=== PATIENT | female | born 1995 | race Caucasian/White ===

== ENCOUNTER 2017-10-04 10:00 | Outpatient (RCR) | payer OTHER, SELFPAY ==
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
== END 2017-11-28 19:00 | disposition home or self-care (01) ==
LOC: PT 10:00
PROVIDERS: Family Provider Pediatrics; PCP Pediatrics
DX: R26.9 Unspecified abnormalities of gait and mobility (principal)
CPT/HCPCS: 97014; 97110; 97116; 97140; 97163; 97164; 97530; G0283

== ENCOUNTER 2017-12-03 10:40 | Observation (INO) | payer OTHER, SELFPAY ==
[2017-12-03 10:40] VITALS: BP 120/76; PULSE 140; RESP 12; TEMP 36.2; O2SAT 100; BMI 18.4
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
[2017-12-03] MEDS: Ondansetron 4 MG/2 ML Vial IV (11:20)
[2017-12-03] MEDS: 0.9% Normal Saline 1,000 ML 1000 ML IV ×2 (11:20→15:00)
[2017-12-03 12:08] LABS: Absolute Lymphocyte Count 1.32 X10^3/ul (0.83-4.51); Absolute Neutrophil Count 6.6 X10^3/uL (2.0-7.7); Basophil# 0.01 X10^3/uL; Basophil% 0.1 % (0-1); Eosinophil# 0.15 X10^3/uL; Eosinophils% 1.7 % (0-5); Hematocrit 43.9 % (37-47); Hemoglobin 15.6 g/dl (12.0-15.0); Lymphocyte # 1.32 X10^3/ul (4.0); Lymphocyte % 14.7 % (19-41); Mean Corpuscular Volume 84.4 fL (81-99); Mean Platelet Vol. 10.1 fl (6.2-12.0); Monocyte# 0.83 X10^3/uL; Monocyte% 9.3 % (0-10); Neutrophil # 6.64 X10^3/uL (2.7-7.7); Platelet Count 239 K/mm3 (150-450); RBC Distribution Width SD 39.8 fl (35.1-43.9)
[2017-12-03 12:09] LABS: Mean Corp Hgb Conc 35.5 g/gl (32-36); POSITIVE COUNT NO; POSITIVE DIFFERENTIAL NO; POSITIVE MORPHOLOGY NO
[2017-12-03 12:11] LABS: Bacteria 0 SEEN /hpf (None Seen); Mucous, Urine 0 SEEN /hpf (<or=2+); Red Blood Cells-Urine 0 SEEN /hpf (0-5)
[2017-12-03 12:12] LABS: Color, Urine Yellow (Yellow); Glucose, Dipstick Normal (Normal); Ketone-Dipstick 150 mg/dl (Negative); Leukocyte Esterase-Dipstick 25 /ul (Negative); Nitrite-Dipstick Negative (Negative); Occult Blood-Urine 150 /ul (Negative); Protein-Dipstick 30 mg/dl (Negative); Specific Gravity, Urine 1.015 (1.002-1.030); Urine Bilirubin Dipstick 3 mg/dL (Negative); Urine Clarity Clear (Clear); Urine Urobilinogen 1 mg/dl (Normal)
[2017-12-03 12:15] LABS: AST(SGOT) 16 U/L (15-37); Alanine Aminotransfer ALT/SGPT 34 U/L (13-56); Alkaline Phosphatase 84 U/L (45-117); Anion Gap 10 (5-15); BUN 18 mg/dL (7-18); BUN/Creat Ratio 18.4 RATIO (10-20); Bilirubin, Direct 0.48 mg/dL (0.00-0.30); Calcium,Total 8.8 mg/dL (8.5-10.1); Chloride 101 mmol/L (98-107); Creatinine, Serum 0.98 mg/dL (0.55-1.02); EST Glomerular Filtration Rate 75 mL/min (>60); Est Glom Filt Rate - Afr Amer 91 mL/min (>60); Estimated Creatinine Clearance 71.64 ml/min; Globulin 3.7 g/dL (2.2-4.2); Glucose 71 mg/dL (74-106); Lipase 1704 U/L (73-393); Potassium 3.7 mmol/L (3.5-5.1); Protein, Total 7.7 g/dL (6.4-8.2); Sodium Level 135 mmol/L (136-145)
[2017-12-03 12:18] LABS: Pregnancy, Serum, hCG Quali. NEGATIVE Negative (0-9 Nonpreg)
[2017-12-03 12:18] LABS: Squamous Epithelial Cells - UA 5-10 SEEN /hpf (5-10); White Blood Cells 0-5 SEEN /hpf (0-5)
[2017-12-03 12:20] VITALS: BP 107/74; PULSE 98; RESP 16; O2SAT 100
--- NOTE | 2017-12-03 15:13 | PCM.HP.STD ---
History of Present Illness Date of Admission: 12/03/17 Chief Complaint: Abdominal pain The patient is a 22 year old F who presented to the emergency room due to abdominal pain for 3 days, she described intermittent pain associated with nausea and diarrhea. [] She will also reports poor appetite and weight loss past [address] scan of the abdomen and pelvis done in the emergency room revealed fluid within the small bowel and colon suggesting enterocolitis. Her lipase was elevated at 1704 and her bilirubin at 4.50. Her mother has history of Gilbert's syndrome. Past Medical History Allergies No Known Allergies Allergy (Verified 12/03/17 10:44) Home Medications: Ambulatory Orders Medication Instructions Recorded Lisdexamfetamine Dimesylate 50 mg PO DAILY 12/03/17 [Vyvanse] Norgestimate-Ethinyl Estradiol 1 tab PO DAILY 12/03/17 [Previfem] Spironolactone [Aldactone] 50 mg PO DAILY 12/03/17 Surgical History: no surgical history Smoking Status: Never smoker Review of Systems Comment: All Systems were reviewed with pertinent positives mentioned in the HPI above. VTE Information - Inpt Only VTE Present on Admission: No VTE Pharm Prophylaxis ordered?: No - Physical Exam General: Alert, Oriented x3 HEENT: Atraumatic Oral: Moist Mucosa Neck: Supple Lungs: Clear to auscultation, No wheeze, No rales Cardiovascular: Regular rate, Normal S1, Normal S2 Extremities: No edema Musculoskeletal: No Tenderness to Palpation of Joints or Extremities Lymphatic: No Cervical, Supraclavicular, or Inguinal Adenopathy Neurological: Cranial nerves II-XII grossly intact Vital Signs Temp Pulse Resp BP Pulse Ox 97.2 F L 98 16 107/74 100 12/03/17 10:40 12/03/17 12:20 12/03/17 12:20 12/03/17 12:20 12/03/17 12:20 Assessment/Plan 1. Acute gastroenteritis; will place her on antibiotics and IV hydration. 2. Elevated lipase consistent with acute pancreatitis; clinically this does not fit pancreatitis picture, we will repeat lipase in a.m. 3. Dehydration; continue IV fluids as above. 4. Hyperbilirubinemia; transaminases are normal, her mother has history of Gilbert's syndrome, follow-up with her primary care physician be screened for Gilbert syndrome. 5. History of ADHD; she is on Vyvanse. 6. History of Acne Vulgaris; she is on Spironolactone 7. Early ambulation for DVT prophylaxis.
[2017-12-03 15:31] VITALS: BMI 19.1
[2017-12-03 15:43] VITALS: BP 92/48; PULSE 110; RESP 14; TEMP 36.9; O2SAT 98
[2017-12-03 20:53] VITALS: BP 103/61; PULSE 89; RESP 20; TEMP 36.7
[2017-12-03 22:00] VITALS: RESP 15
[2017-12-04 04:00] VITALS: PULSE 90; RESP 15
[2017-12-04 06:23] LABS: Absolute Lymphocyte Count 1.65 X10^3/ul (0.83-4.51); Absolute Neutrophil Count 4.9 X10^3/uL (2.0-7.7); Basophil# 0.02 X10^3/uL; Basophil% 0.3 % (0-1); Eosinophil# 0.25 X10^3/uL; Eosinophils% 3.3 % (0-5); Hematocrit 36.7 % (37-47); Hemoglobin 12.9 g/dl (12.0-15.0); Lymphocyte # 1.65 X10^3/ul (4.0); Lymphocyte % 21.9 % (19-41); Mean Corp Hgb Conc 35.1 g/gl (32-36); Mean Corpuscular Hgb 29.9 pg (27.0-32.0); Mean Corpuscular Volume 85.2 fL (81-99); Mean Platelet Vol. 9.9 fl (6.2-12.0); Monocyte# 0.68 X10^3/uL; Neutrophil # 4.92 X10^3/uL (2.7-7.7); Neutrophil % 65.5 % (47-70); Platelet Count 195 K/mm3 (150-450); RBC Distribution Width CV 13.1 % (11.6-14.6); RBC Distribution Width SD 40.6 fl (35.1-43.9); Red Blood Count 4.31 M/mm3 (4.2-5.4); White Blood Count 7.5 K/mm3 (4.4-11.0)
[2017-12-04 06:27] LABS: POSITIVE COUNT NO; POSITIVE DIFFERENTIAL NO; POSITIVE MORPHOLOGY NO
[2017-12-04 06:29] LABS: AST(SGOT) 11 U/L (15-37); Albumin, Serum 2.9 g/dL (3.2-5.0); Alkaline Phosphatase 63 U/L (45-117); BUN 9 mg/dL (7-18); BUN/Creat Ratio 13.5 RATIO (10-20); Calcium,Total 7.9 mg/dL (8.5-10.1); Creatinine, Serum 0.66 mg/dL (0.55-1.02); EST Glomerular Filtration Rate 118 mL/min (>60); Est Glom Filt Rate - Afr Amer 142 mL/min (>60); Estimated Creatinine Clearance 109.76 ml/min; Glucose 80 mg/dL (74-106); Protein, Total 5.9 g/dL (6.4-8.2)
[2017-12-04 06:30] LABS: Alanine Aminotransfer ALT/SGPT 24 U/L (13-56); Anion Gap 9 (5-15); Bilirubin, Direct 0.47 mg/dL (0.00-0.30); Chloride 109 mmol/L (98-107); Potassium 3.6 mmol/L (3.5-5.1); Sodium Level 141 mmol/L (136-145)
[2017-12-04] MEDS: 0.9% Normal Saline 1,000 ML 999 ML IV (07:59)
[2017-12-04 08:01] VITALS: BP 111/66; PULSE 99; RESP 16; TEMP 36.4; O2SAT 100
[2017-12-04] MEDS: Pantoprazole Sodium 20 MG Tablet PO (09:06)
[2017-12-04 09:08] LABS: Lipase 629 U/L (73-393); Magnesium 1.5 mg/dL (1.6-2.6)
--- NOTE | 2017-12-04 09:12 | PCM.DC ---
- Discharge Diagnoses Current Active Problems: Acute Enterocolitis, Gastroenteritis Acute Pancreatitis secondary to #1 Hyperbilirubinemia w/ family history of Gilbert's Syndrome, Possible elevated secondary to #1 and underlying history (improved) ADHD Acne Vulgaris You will use the following diet at home:: Regular Your food should be the consistency of: Regular Your liquids should be the consistency of: Regular/Thin Discharge Activity: - - May slowly return to normal activity. Advised avoidance of aggressive activity until follow-up with primary care physician. May resume sexual activity in: 1-2 weeks Weight Bearing Status: Weight bearing as tolerated Call your doctor if you observe: Fever of 101 or Higher, Inability to urinate, Inability to have a bowel movement, Shortness of breath, Dizziness, Fainting spells, Chest pain, Calf discomfort, Uncontrolled pain Instructions: Viral Gastroenteritis in Children, Discharge Instructions for Acute Pancreatitis, Understanding Pancreatitis, Dehydration Additional Instructions: Please have repeat hepatic profile with your primary care physician at follow-up to assure continued improve given recent acute presentation and also have evaluation for Gilbert's Syndrome given your notable family history. Allergies/Adverse Reactions: Allergies No Known Allergies Allergy (Verified 12/03/17 10:44) Medications to take at Discharge Lisdexamfetamine Dimesylate [Vyvanse] 50 mg PO DAILY 12/03/17 Norgestimate-Ethinyl Estradiol [Previfem] 1 tab PO DAILY 12/03/17 Spironolactone [Aldactone] 50 mg PO DAILY 12/03/17 Pantoprazole Sodium [Protonix] 20 mg PO BID #60 tab 12/04/17 The following prescriptions were given: Pantoprazole Sodium [Protonix] 20 mg PO BID #60 tab Primary Care Physician: Rene Schmidt MD [Primary Care Provider] - Please follow up with your Primary Care Physician in: Follow-up within 2-3 days to review admission. Proposed Discharge Date: 12/04/17
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
[2017-12-04 13:26] VITALS: BP 105/74; PULSE 99; RESP 16; TEMP 36.7; O2SAT 95
== END 2017-12-04 14:29 | disposition home or self-care (01) ==
LOC: ED 11:30 → MS3 14:45
PROVIDERS: Admitting Provider Internal Medicine; Emergency Provider Emergency Medicine; Family Provider Pediatrics; PCP Pediatrics; Visit Provider Family Medicine
DX: E86.0 Dehydration (principal); K52.9 Noninfective gastroenteritis and colitis, unspecified; K85.90 Acute pancreatitis without necrosis or infection, unspecified; L70.0 Acne vulgaris; F90.9 Attention-deficit hyperactivity disorder, unspecified type; E80.6 Other disorders of bilirubin metabolism; Z79.899 Other long term (current) drug therapy
CPT/HCPCS: 36415; 74177; 80048; 80076; 81001; 83690; 83735; 84703; 85025; 96361; 96374; 97802; 99218; 99285; J7030; Q9967; A4216; G0378; J2405

== ENCOUNTER 2018-04-30 08:30 | Outpatient (RCR) | payer OTHER, SELFPAY ==
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
--- NOTE | 2018-01-25 19:10 | HP.PTREVAL_ITS ---
STAN CABRAL, It has been my pleasure to treat NIDIA HUNT over the last 9 visits for LB fusion.. Please see the progress note below for an update on the physical therapy plan of care! Subjective: Feels like motion is getting better. 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 My back feels OK. Little twinges here and there in back but transient. Stiffness is better. Can cross legs now and tie shoes easier. Doing yoga exercises at home. Objective/Function: 30 degrees, flexion 90degrees. R SB:25, L SB 27 degrees with inclinometer. Walking well. Overall significantly better ROM and good function. Wants to try to continue stretching on her own and f/u in a couple months. Plan Plan: f/u 3 months to ensure progressing ROM and then D/C Goals Goal 1:: 20 degrees l/s ext, 50 degrees flexiona and 25 SB without pain. Goal Time Frame: 4-6 Weeks Goal Progress: Goal Met Goal 2:: I apporp HEP to continue ROM improvements. Goal Time Frame: 4-6 Weeks Goal Progress: Goal Met Goal 3:: Bend down to touch floor in standing easily Goal Time Frame: 4-6 Weeks Goal Progress: Progressing Goal 4:: 10 degree improvements in all lumbar ROM ext, flex, SB measurements to limit future problems. Goal Time Frame: 12-16 Weeks Goal Progress: NEW GOAL. Anticipated Interventions Patient/Client Instruction: Educate patient on: Condition, Plan of Care For the Purpose of:: To increase ROM Therapeutic Exercise to Include: Flexibilty training, Passive ROM, Active ROM For the Purpose of:: To increase ROM Manual Therapy Techniques to Include: Soft tissue mobilization For the Purpose of:: To improve nutrient delivery to tissue Thermo therapy (hot pack): Yes For the Purpose of:: To improve nutrient delivery to tissue Please do not hesitate to contact me at [phone] by phone or Fax: if you have questions or concerns regarding this new plan of care! Sincerely, Mathew Jose, DPT, OC
--- NOTE | 2018-04-30 09:17 | HP.PTDCSUM_ITS ---
HP - PT D/C Summary It has been my pleasure to treat NIDIA HUNT under orders from STAN CABRAL, for the diagnosis of LB fusion. for a total of 10 visit(s). Discharge Date: Please see the following information for a summary of their discharge status. - Subjective Subjective: Couple weeks ago stepped off uneven curb and felt pain L LB. Has been there intermittently since and is worse this morning adn with walking. Comfortable lying down. Prior to that was doing really well. Running was OK, pwer walking was OK. Had stopped most ex prior to that. Was sleepign well and activities were normal. L leg remains a little numb buit not noticeable and not worsening. - Pain L LBP Pain Intensity (Out of 10): 5 - Objective Objective/Function: LE AROM full and painfree, HS and gastroc tight. I ntermittent winces of pain mostly with standing today. sensation LE WNL to gross light touch. reflexes patella and aachilles 2/3. LB AROM ext max limited, flexion max limited, SB max limited. Pt has obviously not been working on ROM. Also weak in core with trasnitions and in hips to muscle testing at 4-. Core strength sit up 3. Tender to touch max in L LB paraspinals and into glut upper. Also PA painful lower lumbar and off to left. OVERALL SEEMS INFLAMMED L LB POSSIBLY FROM STEPPING OFF CURB ERRANTLY. RECOMMENDED X RAY FORM DOCTOR AND GENTLE ROM ONCE IT IS CLEAR. THEN F/U WITH DOCTOR IF NOT IMPROVING. - Goals Goal 1:: 20 degrees l/s ext, 50 degrees flexiona and 25 SB without pain. Goal Progress: Goal Met Goal 2:: I apporp HEP to continue ROM improvements. Goal Progress: Goal Met Goal 3:: Bend down to touch floor in standing easily Goal Progress: Not Progressing Goal 4:: 10 degree improvements in all lumbar ROM ext, flex, SB measurements to limit future problems. Goal Progress: Not Progressing - Plan Plan: D/C RECOMMENDING COMPLETE ORDERED X RAY AND F/U WITH DOCTOR FOR LBP, WOULD BE HAPPY TO SEE PATIENT AGAIN AT [facility] WITH A NEW SCRIPT IF FOUND APPROPRIATE BY PHYSICIAN. IF PT APPROPRIATE PRIOR, DOCTOR SHOULD WRITE ORDER TO PT IN [facility]. - D/C Information If there are questions or concerns regarding this patient's physical therapy, please feel free to call me at [phone]. Thank you for the referral of this patient. Sincerely, Mathew Jose, DPT, OC
== END 2018-04-30 19:00 | disposition home or self-care (01) ==
LOC: PT 08:30
PROVIDERS: Family Provider Pediatrics; PCP Pediatrics
DX: M54.5 Low back pain (principal); Z98.1 Arthrodesis status
CPT/HCPCS: 97110; 97140; 97164; 97530

== ENCOUNTER → 2018-04-30 09:19 | Outpatient (CLI) | payer OTHER, SELFPAY ==
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
== END ==
PROVIDERS: Family Provider Pediatrics; PCP Pediatrics
DX: M54.5 Low back pain (principal)
CPT/HCPCS: 72110

== ENCOUNTER → 2018-06-13 12:14 | Outpatient (CLI) | payer OTHER, SELFPAY ==
[2018-01-15 13:06] VITALS: BMI 19.1
[2018-06-13 12:56] LABS: Amylase 197 U/L (25-115); Lipase 1172 U/L (73-393)
== END ==
PROVIDERS: Family Provider Pediatrics; PCP Pediatrics
DX: R10.13 Epigastric pain (principal)
CPT/HCPCS: 82150; 83690

== ENCOUNTER 2018-06-13 16:08 | Observation (INO) | payer OTHER, SELFPAY ==
[2018-06-13 16:08] VITALS: BP 116/69; PULSE 121; RESP 14; TEMP 37; O2SAT 100; BMI 19.5
--- NOTE | 2018-06-13 16:41 | ED.DCSUM_ITS ---
- ER Visit Summary Date of Service: 06/13/18 Chief Complaint: abdominal pain History of Present Illness: The patient is a 22 F with history of pancreatitis patient presents for 2 days of intermittent sharp epigastric abdominal pain with constant sensation of bloating. Patient was sent in by her primary care provider after a noted elevated lipase of 1172. Primary care provider attempted to direct admit her but was advised to send her to the emergency department for initial evaluation. Patient has had associated fatigue and has had no appetite today. She denies any fever, nausea or vomiting. She has had loose stools but denies overt diarrhea. Patient has a history of pancreatitis after of abdominal trauma and subsequent surgery. She also has a history of Gilbert's syndrome. Patient did drink alcohol over the holidays, although denies any excessive use. She does not smoke. She has NO history of cholecystectomy. Physical Examination: Vital signs: afebrile, hemodynamically stable, no hypoxia on room air General: well nourished, well developed, in no distress Skin: warm, dry, no rash, no pallor HEENT: normocephalic and atraumatic; PERRL, EOMI, moist mucous membranes Cardiovascular: Tachycardic rate and rhythm without murmurs, no peripheral edema, 2+ pulses all distal extremities Respiratory: No increased work of breathing, lungs are clear to auscultation bilaterally, no rales, rhonchi or wheezing Abdominal: Abdomen is soft, tender in the epigastrium with normoactive bowel sounds, no guarding or rebound, no masses MSK: Moves all extremities, no deformities, normal strength Neuro: Awake and alert, oriented ?4. No facial droop, sensation and motor function intact and symmetric Test Results: Abnormal Lab Results 06/13/18 06/13/18 06/13/18 17:00 17:00 17:40 WBC 8.8 RBC 4.73 Hgb 14.4 Hct 41.6 MCV 87.9 MCH 30.4 MCHC 34.6 RDW 12.7 RDW Differential 40.9 Plt Count 214 MPV 10.0 Immature Gran % (Auto) 0.100 Neut % (Auto) 77.9 H Lymph % (Auto) 14.1 L Sully % (Auto) 7.0 Eos % (Auto) 0.7 Baso % (Auto) 0.2 Absolute Neuts (auto) 6.9 Absolute Lymphs (auto) 1.25 Total Counted Not Reportable Sodium 138 Potassium 3.5 Chloride 106 Carbon Dioxide 25.0 Anion Gap 7 BUN 11 Creatinine 0.66 Estim Creat Clear Calc 109.14 Est GFR (MDRD) Af Amer 143 Est GFR (MDRD) Non-Af 118 BUN/Creatinine Ratio 16.7 Glucose 89 Calcium 8.6 Total Bilirubin 1.70 H AST 16 ALT 16 Alkaline Phosphatase 74 Total Protein 6.9 Albumin 3.5 Globulin 3.4 Albumin/Globulin Ratio 1.0 Lipase 966 H Urine Color Urine Clarity Urine pH Ur Specific [place] Urine Protein Urine Glucose (UA) Urine Ketones Urine Occult Blood Urine Nitrite Urine Bilirubin Urine Urobilinogen Ur Leukocyte Esterase Urine RBC Urine WBC Ur Squamous Epith Cells Urine Bacteria Urine Mucus Urine Test Negative 06/13/18 17:40 WBC RBC Hgb Hct MCV MCH MCHC RDW RDW Differential Plt Count MPV Immature Gran % (Auto) Neut % (Auto) Lymph % (Auto) Sully % (Auto) Eos % (Auto) Baso % (Auto) Absolute Neuts (auto) Absolute Lymphs (auto) Total Counted Sodium Potassium Chloride Carbon Dioxide Anion Gap BUN Creatinine Estim Creat Clear Calc Est GFR (MDRD) Af Amer Est GFR (MDRD) Non-Af BUN/Creatinine Ratio Glucose Calcium Total Bilirubin AST ALT Alkaline Phosphatase Total Protein Albumin Globulin Albumin/Globulin Ratio Lipase Urine Color Yellow Urine Clarity Sl. Cloudy Urine pH 6.0 Ur Specific [place] 1.020 Urine Protein Negative Urine Glucose (UA) Normal Urine Ketones 5 H Urine Occult Blood 150 H Urine Nitrite Negative Urine Bilirubin Negative Urine Urobilinogen Normal Ur Leukocyte Esterase Negative Urine RBC 0 SEEN Urine WBC 0-5 SEEN Ur Squamous Epith Cells 0-5 SEEN Urine Bacteria 0 SEEN Urine Mucus 3+ Urine Test Clinical Impression(s) from Imaging Studies Gallbladder Ultrasound 06/13/18 18:24 IMPRESSION: Normal right upper quadrant ultrasound examination. Electronically Signed: Pretty Hernandez MD at 19:43 EST , Service support , Medications Given Discontinued Medications Sodium Chloride () 1,000 mls @ 1,000 mls/hr IV .Q1H ONE Stop: 06/13/18 17:38 Last Admin: 06/13/18 17:03 Dose: 1,000 mls/hr Morphine Sulfate () 4 mg IV X1 ONE Stop: 06/13/18 18:41 Last Admin: 06/13/18 18:44 Dose: 4 mg Ondansetron HCl (Zofran) 4 mg IV X1 ONE Stop: 06/13/18 18:41 Last Admin: 06/13/18 18:44 Dose: 4 mg Emergency Department Course and Treatment: Patient received IV fluids, morphine and Zofran for symptomatic control. I was unable to access all of her lab work, and thus labs were redrawn. Patient had no leukocytosis. Total bilirubin was mildly elevated, likely due to her Gilbert's syndrome. Repeat lipase was included and was 966. Because of her history of pancreatitis and her elevated lipase and bilirubin, right upper quadrant ultrasound was performed and showed no signs of gallstone. negative. Urine negative for infection. Patient was discussed with the hospitalist for admission for bowel rest and IV fluids due to acute pancreatitis. Treatment Plan: [] Disposition: [] Impression: Acute pancreatitis This note was generated with [employer] dictation software. It may contain incorrect words, spelling, and punctuation that were not noted in review of the chart prior to signing ED Disposition - Plan for ED Patient: Chief Complaint: Abn Labs Referrals: Rene Schmidt MD [Primary Care Provider] -
[2018-06-13] MEDS: 0.9% Normal Saline 1,000 ML 1000 ML IV (17:03)
[2018-06-13 17:07] VITALS: BP 116/69; PULSE 103; RESP 20; TEMP 37; O2SAT 100
[2018-06-13 17:27] LABS: Absolute Lymphocyte Count 1.25 X10^3/ul (0.83-4.51); Absolute Neutrophil Count 6.9 X10^3/uL (2.0-7.7); Basophil# 0.02 X10^3/uL; Basophil% 0.2 % (0-1); Eosinophil# 0.06 X10^3/uL; Eosinophils% 0.7 % (0-5); Hematocrit 41.6 % (37-47); Hemoglobin 14.4 g/dl (12.0-15.0); Lymphocyte # 1.25 X10^3/ul (4.0); Lymphocyte % 14.1 % (19-41); Mean Corp Hgb Conc 34.6 g/gl (32-36); Mean Corpuscular Hgb 30.4 pg (27.0-32.0); Mean Corpuscular Volume 87.9 fL (81-99); Monocyte# 0.62 X10^3/uL; Neutrophil # 6.88 X10^3/uL (2.7-7.7); Neutrophil % 77.9 % (47-70); Platelet Count 214 K/mm3 (150-450); RBC Distribution Width CV 12.7 % (11.6-14.6); RBC Distribution Width SD 40.9 fl (35.1-43.9); Red Blood Count 4.73 M/mm3 (4.2-5.4); White Blood Count 8.8 K/mm3 (4.4-11.0)
[2018-06-13 17:31] LABS: POSITIVE COUNT NO; POSITIVE DIFFERENTIAL NO; POSITIVE MORPHOLOGY NO
[2018-06-13 17:43] LABS: AST(SGOT) 16 U/L (15-37); Alanine Aminotransfer ALT/SGPT 16 U/L (13-56); Albumin, Serum 3.5 g/dL (3.2-5.0); Alkaline Phosphatase 74 U/L (45-117); Anion Gap 7 (5-15); BUN 11 mg/dL (7-18); BUN/Creat Ratio 16.7 RATIO (10-20); Calcium,Total 8.6 mg/dL (8.5-10.1); Chloride 106 mmol/L (98-107); Creatinine, Serum 0.66 mg/dL (0.55-1.02); EST Glomerular Filtration Rate 118 mL/min (>60); Est Glom Filt Rate - Afr Amer 143 mL/min (>60); Estimated Creatinine Clearance 109.14 ml/min; Globulin 3.4 g/dL (2.2-4.2); Glucose 89 mg/dL (74-106); Lipase 966 U/L (73-393); Potassium 3.5 mmol/L (3.5-5.1); Protein, Total 6.9 g/dL (6.4-8.2); Sodium Level 138 mmol/L (136-145)
[2018-06-13 17:43] LABS: Bacteria 0 SEEN /hpf (None Seen); Red Blood Cells-Urine 0 SEEN /hpf (0-5)
[2018-06-13 17:44] LABS: Color, Urine Yellow (Yellow); Glucose, Dipstick Normal (Normal); Ketone-Dipstick 5 mg/dl (Negative); Leukocyte Esterase-Dipstick Negative /ul (Negative); Nitrite-Dipstick Negative (Negative); Occult Blood-Urine 150 /ul (Negative); Protein-Dipstick Negative (Negative); Urine Bilirubin Dipstick Negative (Negative); Urine Clarity Sl. Cloudy (Clear); Urine Urobilinogen Normal (Normal)
[2018-06-13 17:47] LABS: Internal QC Validated? YES +Cl - CLEAR BKGD; Pregnancy, Urine Negative Negative
[2018-06-13 17:57] LABS: Mucous, Urine 3+ /hpf (<or=2+)
[2018-06-13 17:58] LABS: Squamous Epithelial Cells - UA 0-5 SEEN /hpf (5-10)
[2018-06-13 17:59] LABS: White Blood Cells 0-5 SEEN /hpf (0-5)
[2018-06-13 18:08] VITALS: BP 109/68; PULSE 98; RESP 20; TEMP 36.6; O2SAT 100
--- NOTE | 2018-06-13 18:24 | US_ITS ---
STUDY: ABDOMINAL ULTRASOUND - RIGHT UPPER QUADRANT REASON FOR VISIT: Female, 22 years old. Abdominal pain/pancreatitis. TECHNIQUE: Ultrasound evaluation of the right upper quadrant was performed with real-time and static escobar-scale imaging. TECHNICAL QUALITY: Adequate. COMPARISON: Prior abdomen and pelvic exam of December 03, 2017 FINDINGS: Liver: The liver measures 15.2 cm. There is normal echogenicity of the liver. The bile ducts are within normal limits. There is no demonstrated mass lesion. Gallbladder: Normal distended gallbladder. The gallbladder wall measures 2 mm. There is a negative sonographic Abreu's sign. There is no pericholecystic fluid. There are no gallstones. Common Bile Duct (C.B.D.): The common bile duct measures 2 mm. Pancreas: Normal size of the head, body and tail of the pancreas. There is normal echogenicity of the pancreas. There is no demonstrated pancreatic mass or cyst. Right Kidney: Normal size of the right kidney. The right kidney measures 10.4 x 4.2 x 4.4 cm. Normal renal cortex. The right cortex measures 1.5 cm. There is no demonstrated renal mass or cyst. There is no right hydronephrosis. US/Gallbladder IMPRESSION: Normal right upper quadrant ultrasound examination. Electronically Signed: Pretty Hernandez MD at 19:43 EST , Service support ,
[2018-06-13] MEDS: Ondansetron 4 MG/2 ML Vial IV (18:44)
[2018-06-13] MEDS: Morphine 4 MG/ML Syringe IV (18:44)
[2018-06-13 19:25] VITALS: BP 106/65; PULSE 105; RESP 18; TEMP 36.7; O2SAT 100
[2018-06-13 20:11] VITALS: BP 94/71; PULSE 91; RESP 13; O2SAT 100
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
[2018-06-13 21:22] VITALS: BMI 20.2
[2018-06-13 21:33] VITALS: BP 109/67; PULSE 90; RESP 12; TEMP 37.3; O2SAT 100
[2018-06-13] MEDS: Lactated Ringers 1,000 ML 250 ML IV (21:53)
[2018-06-14] MEDS: Lactated Ringers 1,000 ML 250 ML IV ×2 (01:47→05:36)
[2018-06-14 01:49] VITALS: BP 104/50; PULSE 98; RESP 14; TEMP 36.7; O2SAT 100
[2018-06-14] MEDS: 0.9% NaCl Peripheral Flush Adult/Peds IV (05:36)
[2018-06-14 05:38] VITALS: BP 110/56; PULSE 96; RESP 14; TEMP 36.8; O2SAT 100
[2018-06-14 06:19] LABS: Absolute Lymphocyte Count 1.83 X10^3/ul (0.83-4.51); Absolute Neutrophil Count 2.7 X10^3/uL (2.0-7.7); Basophil# 0.02 X10^3/uL; Basophil% 0.4 % (0-1); Eosinophil# 0.15 X10^3/uL; Eosinophils% 2.8 % (0-5); Hematocrit 34.3 % (37-47); Hemoglobin 11.9 g/dl (12.0-15.0); Lymphocyte # 1.83 X10^3/ul (4.0); Lymphocyte % 34.1 % (19-41); Mean Corp Hgb Conc 34.7 g/gl (32-36); Mean Corpuscular Hgb 30.8 pg (27.0-32.0); Mean Corpuscular Volume 88.9 fL (81-99); Monocyte# 0.63 X10^3/uL; Monocyte% 11.7 % (0-10); Neutrophil # 2.73 X10^3/uL (2.7-7.7); Neutrophil % 50.8 % (47-70); Platelet Count 200 K/mm3 (150-450); RBC Distribution Width CV 12.6 % (11.6-14.6); RBC Distribution Width SD 39.8 fl (35.1-43.9); Red Blood Count 3.86 M/mm3 (4.2-5.4); White Blood Count 5.4 K/mm3 (4.4-11.0)
[2018-06-14 06:23] LABS: POSITIVE COUNT NO; POSITIVE DIFFERENTIAL NO; POSITIVE MORPHOLOGY NO
[2018-06-14 06:40] LABS: Anion Gap 8 (5-15); BUN 6 mg/dL (7-18); BUN/Creat Ratio 9.7 RATIO (10-20); Calcium,Total 7.7 mg/dL (8.5-10.1); Chloride 109 mmol/L (98-107); Creatinine, Serum 0.62 mg/dL (0.55-1.02); EST Glomerular Filtration Rate 127 mL/min (>60); Est Glom Filt Rate - Afr Amer 154 mL/min (>60); Estimated Creatinine Clearance 120.97 ml/min; Glucose 78 mg/dL (74-106); Potassium 3.5 mmol/L (3.5-5.1); Sodium Level 142 mmol/L (136-145)
[2018-06-14 07:20] VITALS: O2SAT 99
[2018-06-14] MEDS: Spironolactone 50 MG Tablet PO (09:32)
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
[2018-06-14] MEDS: Acetaminophen 325 MG Tablet 650 MG PO (10:19)
[2018-06-14 10:39] LABS: Bilirubin, Direct 0.33 mg/dL (0.00-0.30)
[2018-06-14 10:41] LABS: Cholesterol 127 mg/dL (200); High Density Lipoprotein 43 mg/dL; Triglycerides 134 mg/dL; Very Low Density Lipoprotein 27 mg/dL (5-40)
[2018-06-14 14:00] VITALS: BP 116/70; PULSE 98; RESP 18; TEMP 36.7; O2SAT 100
--- NOTE | 2018-06-14 17:41 | PCM.DC ---
- Discharge Diagnoses Current Active Problems: Current Active and Chronic Problems (Last Reviewed 01/15/18 @ 13:08 by Kimberly Flores) Acute recurrent pancreatitis (Acute) Reason(s) for Visit for Discharge Instructions: Abdominal pain You will use the following diet at home:: Regular Your food should be the consistency of: Regular Your liquids should be the consistency of: Regular/Thin Discharge Activity: Return to Normal Activity Additional Instructions: Advance your diet as you can tolerate up to a regular diet. Follow-up with your Primary care doctor and ic design manager. As discussed earlier, do nogt take your estradiol medication. Continue to keep yourself hydrated. Allergies/Adverse Reactions: Allergies No Known Allergies Allergy (Verified 06/13/18 16:10) Medications to take at Discharge Lisdexamfetamine Dimesylate [Vyvanse] 50 mg PO DAILY 12/03/17 Spironolactone [Aldactone] 50 mg PO DAILY 12/03/17 norgestimate 0.25 mg-ethinyl estradiol 35 mcg tablet 1 tab PO DAILY #84 tab 01/15/18 Primary Care Physician: Rene Schmidt MD [Primary Care Provider] - Please follow up with your Primary Care Physician in: within 2 weeks Test Results: Test results from this visit will be discussed in further detail at your follow-up appointment, if applicable. Proposed Discharge Date: 06/14/18
--- NOTE | 2018-06-14 17:44 | DCINST_ITS ---
- Discharge Diagnoses Current Active Problems: Current Active and Chronic Problems (Last Reviewed 01/15/18 @ 13:08 by Kimberly Flores) Acute recurrent pancreatitis (Acute) Reason(s) for Visit for Discharge Instructions: Abdominal pain You will use the following diet at home:: Regular Your food should be the consistency of: Regular Your liquids should be the consistency of: Regular/Thin Discharge Activity: Return to Normal Activity Additional Instructions: Advance your diet as you can tolerate up to a regular diet. Follow-up with your Primary care doctor and sales department supervisor. As discu ssed earlier, do nogt take your estradiol medication. Continue to keep yourself hydrated. Allergies/Adverse Reactions: Allergies No Known Allergies Allergy (Verified 06/13/18 16:10) Medications to take at Discharge Lisdexamfetamine Dimesylate [Vyvanse] 50 mg PO DAILY 12/03/17 Spironolactone [Aldactone] 50 mg PO DAILY 12/03/17 norgestimate 0.25 mg-ethinyl estradiol 35 mcg tablet 1 tab PO DAILY #84 tab 01/15/18 Primary Care Physician: Rene Schmidt MD [Primary Care Provider] - Please follow up with your Primary Care Physician in: within 2 weeks Test Results: Test results from this visit will be discussed in further detail at your follow- up appointment, if applicable. Proposed Discharge Date: 06/14/18
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
== END 2018-06-14 18:02 | disposition home or self-care (01) ==
LOC: ED 17:30 → MS3 20:47
PROVIDERS: Admitting Provider Hospitalist; Emergency Provider Emergency Medicine; Family Provider Pediatrics; PCP Pediatrics; Referring Provider Hospitalist; Visit Provider Internal Medicine
DX: K85.90 Acute pancreatitis without necrosis or infection, unspecified (principal); K86.1 Other chronic pancreatitis; E80.4 Gilbert syndrome; Z79.899 Other long term (current) drug therapy; F90.9 Attention-deficit hyperactivity disorder, unspecified type; L70.0 Acne vulgaris
CPT/HCPCS: 36415; 76705; 80048; 80053; 80061; 81001; 81025; 82247; 82248; 83690; 85025; 96361; 96374; 96375; 99218; 99282; J7030; J7120; A4216; G0378; J2405